=== PATIENT | male | born 1990 | race Two or more races ===

== ENCOUNTER 2021-02-28 14:40 | Emergency (ER) | payer OTHER ==
[2021-02-28 14:55] VITALS: BP 125/80; PULSE 86; TEMP 99
== END 2021-02-28 16:49 | disposition home or self-care (01) ==
LOC: FER 14:40
DX: M25.562 Pain in left knee (principal)
CPT/HCPCS: 73560-TC-LT-FY; 99283-25

== ENCOUNTER 2021-03-14 17:04 | Emergency (ER) | payer OTHER ==
[2021-03-14 17:19] VITALS: BP 114/65; PULSE 72; TEMP 98.4; BMI 30.5
== END 2021-03-14 17:54 | disposition home or self-care (01) ==
LOC: JERFT 17:04
DX: M25.562 Pain in left knee (principal); Z13.828 Encounter for screening for other musculoskeletal disorder
CPT/HCPCS: 99281-25

== ENCOUNTER 2022-02-02 05:29 | Emergency (ER) | payer OTHER ==
[2022-02-02 05:46] VITALS: BP 135/81; PULSE 73; TEMP 98.6; BMI 30.5
[2022-02-02] MEDS ORDERED: IBUPROFEN 600 MG TABLET (FP) PO ONE ×2 (05:50→05:51)
== END 2022-02-02 06:44 | disposition home or self-care (01) ==
LOC: FER 05:29
DX: S20.219A Contusion of unspecified front wall of thorax, initial encounter (principal); W22.8XXA Striking against or struck by other objects, initial encounter; V03.00XA Pedestrian on foot injured in collision with car, pick-up truck or van in nontraffic accident, initial encounter
CPT/HCPCS: 71046-TC-FY; 71101-TC-RT-FY; 99284-25

== ENCOUNTER 2022-10-19 15:25 | Emergency (ER) | payer OTHER ==
[2022-10-19 15:33] VITALS: BP 135/92; PULSE 90; RESP 18; TEMP 98.2; BMI 29.7
[2022-10-19] MEDS ORDERED: IBUPROFEN 600 MG TABLET (FP) PO ONE ×2 (15:58→16:01)
== END 2022-10-19 17:00 | disposition home or self-care (01) ==
LOC: FER 15:25
DX: S83.92XA Sprain of unspecified site of left knee, initial encounter (principal); X50.9XXA Other and unspecified overexertion or strenuous movements or postures, initial encounter
CPT/HCPCS: 73562-TC-LT-FY; 99283-25

== ENCOUNTER 2023-02-15 06:22 | Day surgery (SDC) | payer OTHER ==
[2023-02-06 09:16] VITALS: BMI 29.7
[2023-02-15] MEDS ORDERED: PROPOFOL 20 ML ONE ×2 (07:10→07:38)
[2023-02-15] MEDS ORDERED: MIDAZOLAM HCL 2 MG/2 ML SINGLE DOSE VIAL ONE (07:11)
[2023-02-15] MEDS ORDERED: EPINEPHrine 1:1,000 1,000 MCG/ML ML ONE (07:13)
[2023-02-15] MEDS ORDERED: BUPIVACAINE HCL/EPINEPHRINE/PF 30 ML VIAL IJ ONE (07:13)
[2023-02-15] MEDS ORDERED: oxyCODONE HCL 5 MG TABLET PO PRN (07:20)
[2023-02-15] MEDS ORDERED: ACETAMINOPHEN 325 MG TABLET (FP) PO PRN (07:20)
[2023-02-15] MEDS ORDERED: ONDANSETRON 4 MG/2 ML VIAL IVPUSH PRN (07:20)
[2023-02-15] MEDS ORDERED: LACTATED RINGERS SOLUTION 1,000 ML IV SCH (07:30)
[2023-02-15] MEDS ORDERED: KETOROLAC TROMETHAMINE 30 MG/1 ML VIAL ONE (07:41)
[2023-02-15] MEDS ORDERED: ceFAZolin SODIUM 1 GM VIAL ONE ×2 (07:41)
[2023-02-15] MEDS ORDERED: DEXAMETHASONE SOD PHOSPHATE 4 MG/1 ML VIAL ONE (07:41)
[2023-02-15] MEDS ORDERED: ACETAMINOPHEN 1000 MG/100 ML BAG IVPB ONE (09:45)
[2023-02-15] MEDS ORDERED: FENTANYL CITRATE/PF 50 MCG/ML VIAL ONE ×2 (09:49→10:25)
[2023-02-15] MEDS ORDERED: ONDANSETRON 4 MG/2 ML VIAL ONE (10:26)
[2023-02-15] MEDS ORDERED: oxyCODONE HCL 5 MG TABLET ONE (10:26)
[2023-02-15 11:41] VITALS: TEMP 97.4
[2023-02-15 11:47] VITALS: BP 124/68; PULSE 79; RESP 19
== END 2023-02-15 11:46 | disposition home or self-care (01) ==
LOC: FASU 06:22
PROVIDERS: ATTEND Orthopaedic Surgery
PROC: 0SCD4ZZ Extirpation of Matter from Left Knee Joint, Percutaneous Endoscopic Approach (ICD-10-PCS; 2023-02-15)
PROC: 0SBD4ZZ Excision of Left Knee Joint, Percutaneous Endoscopic Approach (ICD-10-PCS; principal; 2023-02-15 08:00)
DX: M23.42 Loose body in knee, left knee (principal); M67.262 Synovial hypertrophy, not elsewhere classified, left lower leg; M94.262 Chondromalacia, left knee; M65.9 Synovitis and tenosynovitis, unspecified
CPT/HCPCS: 88307-TC; 88311-TC; 94760